=== PATIENT | female | born 1945 | race African-American/Black ===

== ENCOUNTER 2016-11-27 01:26 | Emergency (ER) | payer MEDICARE, OTHER ==
[~2016-11-27] VITALS: Ht 154.9 cm; Wt 90.9 kg
[~2016-11-27 01:26] MED LIST: AMLO-512 PO; ASPI81TA2 PO; DONE10TA43 PO; METF500T4 PO; METO-325 PO; OXYB5 PO; PARO20TA41 PO; PIOG15TA13 PO
[2016-11-27 01:52] LABS: GLUCOSE,POINT OF CARE 119 MG/DL (70-110)
[2016-11-27] MEDS ORDERED: ACETAMINOPHEN 500 MG TABLET PO ONE (06:00)
[2016-11-27 06:05] VITALS: BP 134/86
== END 2016-11-27 07:55 | disposition home or self-care (01) ==
LOC: EMS 01:27
DX: S40.012A Contusion of left shoulder, initial encounter (principal); E11.9 Type 2 diabetes mellitus without complications; I10 Essential (primary) hypertension; Z86.73 Personal history of transient ischemic attack (TIA), and cerebral infarction without residual deficits; W01.198A Fall on same level from slipping, tripping and stumbling with subsequent striking against other object, initial encounter; Y93.89 Activity, other specified; Y92.89 Other specified places as the place of occurrence of the external cause; Y99.9 Unspecified external cause status
CPT/HCPCS: 82962; 99284

== ENCOUNTER 2022-02-18 13:35 | Inpatient (IN) | payer OTHER, MEDICAID ==
[~2022-02-18] VITALS: Ht 170.2 cm; Wt 99.6 kg
[~2022-02-18 13:35] MED LIST changes: +AMLO-258 PO; -AMLO-512 PO; +ASPI-1198 PO; -ASPI81TA2 PO; +METF-1211 PO; -METF500T4 PO; -METO-325 PO; +METO-558 PO; -OXYB5 PO; +OXYB5TAB20 PO; +PARO-66 PO; -PARO20TA41 PO; -PIOG15TA13 PO; +PIOG15TA6 PO
[2022-02-18 14:15] LABS: APPEARANCE,URINE HAZY (CLEAR); BILIRUBIN,URINE NEGATIVE (NEGATIVE); GLUCOSE, URINE (UA) NEGATIVE (NEGATIVE); KETONES,URINE NEGATIVE (NEGATIVE); LEUKOCYTE ESTERASE ,URINE NEGATIVE (NEGATIVE); NITRATE,URINE NEGATIVE (NEGATIVE); OCCULT BLOOD,URINE NEGATIVE (NEGATIVE); PROTEIN,URINE TRACE mg/dL (NEGATIVE); SPECIFIC GRAVITIY, URINE 1.017 (1.003-1.030); UROBILINOGEN,URINE <=1.0 mg/dL (<=1.0)
[2022-02-18 14:24] LABS: CALCIUM, TOTAL 10.6 mg/dL (8.8-10.5); CREATININE 7.66 mg/dL (0.60-1.30); POTASSIUM 5.9 mmol/L (3.5-5.1)
[2022-02-18 14:25] LABS: HEMATOCRIT 39.6 % (36-46); MEAN CORPUSCULAR HEMOGLOBIN 26.6 pg (26.0-34.0); MEAN CORPUSCULAR HGB CONC 30.2 G/dL (31.0-37.0); MEAN CORPUSCULAR VOLUME 88 fL (80-100); PLATELET COUNT (AUTO) 369 K/uL (150-450); RED CELL DISTRIBUTION WIDTH 16.2 % (11.5-14.5)
[2022-02-18 14:31] LABS: INR 1.3 (0.9-1.1)
[2022-02-18 14:48] LABS: BAND NEUTROPHILS % (MANUAL) 17 % (0-5); LYMPHOCYTES % (MANUAL) 5 % (22-44); MONOCYTES % (MANUAL) 3 % (2-9); SEGMENTED NEUTROPHILS % 75 % (40-70)
[2022-02-18 14:49] LABS: ALBUMIN 2.6 g/dL (3.4-5.0); BILIRUBIN,TOTAL 0.8 mg/dL (0.1-1.0); TOTAL PROTEIN, SERUM 7.6 g/dL (6.4-8.2)
[2022-02-18] MEDS ORDERED: CefTRIAXone 1 GM/DEXTROSE 50 ML IV ONE (15:00)
[2022-02-18] MEDS ORDERED: SODIUM CHLORIDE 0.9% 2,000 ML IV ONE (15:00)
[2022-02-18 15:02] LABS: LACTIC ACID 8.7 mmol/L (0.4-2.0)
[2022-02-18 15:04] LABS: ABG BASE EXCESS -11.6 mmol/L (-2.0-3.0); ABG CARBOXYHEMOGLOBIN 0.3 % (0.0-1.5); ABG HCO3 16.4 mmol/L (22.0-26.0); ABG METHEMOGLOBIN 0.3 % (0.0-1.5); ABG OXYGEN CONTENT 16.5 mL/dL (15.0-23.0); ABG OXYGEN SATURATION 98.7 % (95.0-98.0); ABG OXYHEMOGLOBIN 98.1 % (94.0-100.0); ABG PCO2 30 mmHg (35-45); ABG PH 7.307 (7.35-7.450); ABG TOTAL HEMOGLOBIN 11.7 G/dL (12.0-18.0); PO2, ARTERIAL BG 193.1 mmHg (75.0-83.0); SOURCE, BLOOD GAS ARTERIAL; TEMPERATURE, FAHRENHEIT, BG 102.4 FAHREN (96.0-98.6)
[2022-02-18 15:05] LABS: ABG A-A DIFF O2 484.9 mmHg (10-20.0); SITE, BLOOD GAS ALINE
[2022-02-18 15:06] LABS: O2 DEVICE,BLOOD GAS VENTILATOR (ROOM AIR); PEEP,BG 5 cm H2O; VT, ABG 450 ml
[2022-02-18 15:09] LABS: COVID AG,FIA SOURCE NASAL SWAB
[2022-02-18] MEDS ORDERED: SODIUM BICARBONATE [ADULT] 8.4% 50 MEQ/50 ML SYRINGE IVP ONE (15:15)
[2022-02-18] MEDS ORDERED: CALCIUM GLUCONATE 100 MG/ML 10 ML IVP ONE (15:15)
[2022-02-18] MEDS ORDERED: ACETAMINOPHEN 1000 MG/ISO-OSM 100 ML IV ONE (15:15)
[2022-02-18] MEDS ORDERED: INSULIN REGULAR, HUMAN 100 UNITS/ML IVP ONE (15:15)
[2022-02-18] MEDS ORDERED: DEXTROSE 50%-WATER 25 GM/50 ML SYRINGE IVP ONE (15:15)
[2022-02-18] MEDS ORDERED: *CLINICAL-CEFEPIME DOSING CLINICAL ONE ×3 (15:15→19:15)
[2022-02-18] MEDS ORDERED: 0.9% SODIUM CHLORIDE 10 ML SYRINGE IVP PRN (15:30)
[2022-02-18] MEDS ORDERED: ONDANSETRON HCL 4 MG/2 ML VIAL IVP PRN (15:45)
[2022-02-18] MEDS ORDERED: HEPARIN SODIUM,PORCINE 5,000 UNITS/ML VIAL IVP ONE (15:45)
[2022-02-18] MEDS ORDERED: DEXTROSE 50%-WATER 25 GM/50 ML SYRINGE IVP PRN (15:45)
[2022-02-18] MEDS ORDERED: SODIUM CHLORIDE 0.45% 1,000 ML IV ONE (15:45)
[2022-02-18] MEDS ORDERED: BISACODYL 10 MG RECTAL RECTAL SUPPOSITORY PR PRN (15:45)
[2022-02-18] MEDS ORDERED: VANCOMYCIN 1GM/WATER(PEG/NADA) 200 ML IV ONE (16:00)
[2022-02-18] MEDS: NOREPINEPHRINE 8 MG/D5%-WATER 250 ML IV PRN (16:07)
[2022-02-18] MEDS: PROPOFOL 1000 MG/ISO-OSM 100 ML IV PRN (16:08)
[2022-02-18] MEDS ORDERED: VANCOMYCIN 1GM/WATER(PEG/NADA) 200 ML IV PRN (16:15)
[2022-02-18] MEDS: HEPARIN SODIUM,PORCINE 5,000 UNITS/ML VIAL SQ SCH ×2 (16:47→23:50)
[2022-02-18 17:06] LABS: COVID AG,FIA SOURCE NASAL SWAB
[2022-02-18 17:08] LABS: BACTERIA,URINE Rare /HPF (None Seen); RBC,URINE 0-2 /HPF (0-2); SQUAMOUS EPITHELIAL CELL,UR Many /LPF (None Seen); WBC,URINE 0-2 /HPF (0-5)
[2022-02-18] MEDS: CEFEPIME HCL 1 GM in DEXTROSE 5%-WATER 50 ML IV SCH (17:48)
[2022-02-18 20:02] LABS: CREATININE,URINE RANDOM 214.1 mg/dL (30.0-125.0); SODIUM,URINE RANDOM < 5 mmol/l (20-110); UREA NITROGEN,URINE RANDOM 823 mg/dL (350-1000)
[2022-02-18] MEDS ORDERED: ACETAMINOPHEN 325 MG/ISO-OSM 32.5 ML IV PRN (21:00)
[2022-02-18] MEDS: ACETAMINOPHEN 325 MG TABLET PO PRN (21:15)
[2022-02-18 22:45] VITALS: BP 116/79
[2022-02-18 23:00] VITALS: BP 134/91
[2022-02-18 23:30] VITALS: BP 115/59
[2022-02-19] VITALS (8 sets, daily range): BP systolic 79–136; BP diastolic 43–74
[2022-02-19] MEDS ORDERED: HEPARIN SODIUM,PORCINE 1,000 UNITS/ML VIAL IVCATH ONE ×2 (00:15)
[2022-02-19] MEDS: NOREPINEPHRINE 8 MG/D5%-WATER 250 ML IV PRN ×2 (02:25→10:09)
[2022-02-19] MEDS: PROPOFOL 1000 MG/ISO-OSM 100 ML IV PRN ×2 (02:30→22:25)
[2022-02-19] MEDS: VASOPRESSIN 40 UNITS in DEXTROSE 5%-WATER 98 ML IV PRN ×2 (05:04→22:22)
[2022-02-19 05:32] LABS: CREATININE 4.18 mg/dL (0.60-1.30); MAGNESIUM 1.5 mg/dL (1.80-2.40); PHOSPHORUS 1.6 mg/dL (2.5-4.9); POTASSIUM 3.6 mmol/L (3.5-5.1)
[2022-02-19 05:33] LABS: INR 1.6 (0.9-1.1); PROTHROMBIN TIME 16.3 SEC (9.4-11.6)
[2022-02-19 05:34] LABS: HEMATOCRIT 30.4 % (36-46); HEMOGLOBIN 9.9 g/dL (12.0-16.0); MEAN CORPUSCULAR HEMOGLOBIN 26.8 pg (26.0-34.0); MEAN CORPUSCULAR HGB CONC 32.5 G/dL (31.0-37.0); MEAN CORPUSCULAR VOLUME 82 fL (80-100); PLATELET COUNT (AUTO) 258 K/uL (150-450); RED BLOOD CELL COUNT(AUTO) 3.69 MIL/uL (4.00-5.20)
[2022-02-19 05:40] LABS: LACTIC ACID 4.5 mmol/L (0.4-2.0)
[2022-02-19 08:23] LABS: BAND NEUTROPHILS % (MANUAL) 16 % (0-5); EOSINOPHILS % (MANUAL) 1 % (1-6); LYMPHOCYTES % (MANUAL) 9 % (22-44); MONOCYTES % (MANUAL) 5 % (2-9); SEGMENTED NEUTROPHILS % 69 % (40-70)
[2022-02-19] MEDS: PANTOPRAZOLE SODIUM 40 MG/VIAL IVP SCH (09:01)
[2022-02-19] MEDS: HEPARIN SODIUM,PORCINE 5,000 UNITS/ML VIAL SQ SCH ×2 (09:01→17:06)
[2022-02-19 09:30] LABS: ABG A-A DIFF O2 314.9 mmHg (10-20.0); ABG BASE EXCESS -3.3 mmol/L (-2.0-3.0); ABG CARBOXYHEMOGLOBIN 0.3 % (0.0-1.5); ABG HCO3 22.6 mmol/L (22.0-26.0); ABG METHEMOGLOBIN 0.1 % (0.0-1.5); ABG OXYGEN CONTENT 14.6 mL/dL (15.0-23.0); ABG OXYGEN SATURATION 94.5 % (95.0-98.0); ABG OXYHEMOGLOBIN 94.1 % (94.0-100.0); ABG PCO2 28 mmHg (35-45); ABG PH 7.476 (7.35-7.450); O2 DEVICE,BLOOD GAS VENTILATOR (ROOM AIR); PO2, ARTERIAL BG 79.7 mmHg (75.0-83.0); SITE, BLOOD GAS RT RADIAL; SOURCE, BLOOD GAS ARTERIAL; TEMPERATURE, FAHRENHEIT, BG 101.3 FAHREN (96.0-98.6); VT, ABG 450 ml
[2022-02-19 09:31] LABS: PEEP,BG 5 cm H2O
[2022-02-19] MEDS ORDERED: SODIUM CHLORIDE 0.9% 100 ML ONE (10:27)
[2022-02-19] MEDS ORDERED: AMIODARONE HCL 50 MG/ML 3 ML VIAL ONE (10:27)
[2022-02-19] MEDS ORDERED: AMIODARONE HCL 150 MG in DEXTROSE 5%-WATER 97 ML IV ONE (10:30)
[2022-02-19] MEDS ORDERED: AMIODARONE HCL 360 MG in DEXTROSE 5%-WATER 242.8 ML IV ONE (10:40)
[2022-02-19] MEDS: PHENYLEPHRINE 200 MG/D5%-WATER 250 ML IV PRN ×2 (10:47→21:39)
[2022-02-19] MEDS ORDERED: VANCOMYCIN HCL 750 MG in DEXTROSE 5%-WATER 250 ML IV ONE (12:00)
[2022-02-19] MEDS ORDERED: PROPOFOL 1000 MG/ISO-OSM 100 ML ONE (12:38)
[2022-02-19] MEDS ORDERED: SODIUM CHLORIDE 0.9% 500 ML IV ONE (13:15)
[2022-02-19] MEDS ORDERED: SODIUM CHLORIDE 0.9% 250 ML IV ONE (14:39)
[2022-02-19] MEDS: SODIUM CHLORIDE 0.9% 1,000 ML IV SCH (14:42)
[2022-02-19] MEDS ORDERED: AMIODARONE HCL 540 MG in DEXTROSE 5%-WATER 239.2 ML IV ONE (16:30)
[2022-02-19] MEDS: DOXYCYCLINE HYCLATE 100 MG in DEXTROSE 5%-WATER 100 ML IV SCH (16:30)
[2022-02-19] MEDS: CEFEPIME HCL 1 GM in DEXTROSE 5%-WATER 50 ML IV SCH (17:00)
[2022-02-19] MEDS: MetroNIDAZOLE 500 MG/NACL 100 ML IV SCH ×2 (17:06→23:16)
[2022-02-19 19:01] LABS: GLUCOSE,POINT OF CARE 324 MG/DL (70-110)
[2022-02-19] MEDS: INSULIN LISPRO 100 UNITS/ML SQ PRN ×2 (19:03→21:21)
[2022-02-20] VITALS: BP 126/60
[2022-02-20] MEDS: HEPARIN SODIUM,PORCINE 5,000 UNITS/ML VIAL SQ SCH ×3 (00:48→17:37)
[2022-02-20 02:10] LABS: GLUCOSE,POINT OF CARE 273 MG/DL (70-110)
[2022-02-20] MEDS: DOXYCYCLINE HYCLATE 100 MG in DEXTROSE 5%-WATER 100 ML IV SCH ×2 (03:59→14:42)
[2022-02-20 04:00] VITALS: BP 119/55
[2022-02-20] MEDS: SODIUM CHLORIDE 0.9% 1,000 ML IV SCH ×3 (05:54→23:05)
[2022-02-20] MEDS: MetroNIDAZOLE 500 MG/NACL 100 ML IV SCH ×3 (06:38→23:00)
[2022-02-20] MEDS: INSULIN LISPRO 100 UNITS/ML SQ PRN ×2 (06:40→19:19)
[2022-02-20 07:01] LABS: GLUCOSE,POINT OF CARE 267 MG/DL (70-110)
[2022-02-20 08:00] VITALS: BP 138/66
[2022-02-20 08:32] LABS: HEMOGLOBIN 8.8 g/dL (12.0-16.0); MEAN CORPUSCULAR HEMOGLOBIN 30.7 pg (26.0-34.0); MEAN CORPUSCULAR HGB CONC 33.8 G/dL (31.0-37.0); MEAN CORPUSCULAR VOLUME 91 fL (80-100); PLATELET COUNT (AUTO) 532 K/uL (150-450); RED BLOOD CELL COUNT(AUTO) 2.87 MIL/uL (4.00-5.20); RED CELL DISTRIBUTION WIDTH 16.6 % (11.5-14.5)
[2022-02-20] MEDS: PHENYLEPHRINE 200 MG/D5%-WATER 250 ML IV PRN (08:38)
[2022-02-20] MEDS: PANTOPRAZOLE SODIUM 40 MG/VIAL IVP SCH (08:39)
[2022-02-20] MEDS: ASPIRIN 81 MG DR TABLET NG SCH (08:39)
[2022-02-20 09:42] LABS: BAND NEUTROPHILS % (MANUAL) 17 % (0-5); EOSINOPHILS % (MANUAL) 1 % (1-6); LYMPHOCYTES % (MANUAL) 5 % (22-44); MONOCYTES % (MANUAL) 4 % (2-9); SEGMENTED NEUTROPHILS % 73 % (40-70)
[2022-02-20] MEDS ORDERED: AMIODARONE HCL 750 MG in DEXTROSE 5%-WATER 485 ML IV SCH (10:30)
[2022-02-20 12:00] VITALS: BP 133/64
[2022-02-20 12:14] LABS: ANION GAP 16 mmol/L (8-16); CALCIUM, TOTAL 7.3 mg/dL (8.8-10.5); CARBON DIOXIDE 19 mmol/L (22-29); CHLORIDE 99 mmol/L (98-107); CHOL/HDL RATIO 2.6 (3.9-5.7); CHOLESTEROL < 50 mg/dL (131-200); CREATININE 3.62 mg/dL (0.60-1.30); GLOMERULAR FILTR. RATE CALC 15 mL/min (>60); GLUCOSE,RANDOM 190 mg/dL (70-110); HDL CHOLESTEROL 19 mg/dL (40-60); LDL CHOL (CALC.) 10 mg/dL (0-130); PHOSPHORUS 3.1 mg/dL (2.5-4.9); POTASSIUM 4.1 mmol/L (3.5-5.1); SODIUM SERUM 134 mmol/L (136-145); TRIGLYCERIDES 107 mg/dL (15-150); UREA NITROGEN, BLOOD 71 mg/dL (7-18)
[2022-02-20 13:20] LABS: ABG A-A DIFF O2 193.4 mmHg (10-20.0); ABG BASE EXCESS -7.8 mmol/L (-2.0-3.0); ABG CARBOXYHEMOGLOBIN 0.3 % (0.0-1.5); ABG HCO3 18.9 mmol/L (22.0-26.0); ABG METHEMOGLOBIN 0.3 % (0.0-1.5); ABG OXYGEN CONTENT 13.6 mL/dL (15.0-23.0); ABG OXYGEN SATURATION 98.4 % (95.0-98.0); ABG OXYHEMOGLOBIN 97.8 % (94.0-100.0); ABG PCO2 30 mmHg (35-45); ABG PH 7.382 (7.35-7.450); ABG TOTAL HEMOGLOBIN 9.7 G/dL (12.0-18.0); O2 DEVICE,BLOOD GAS VENTILATOR (ROOM AIR); PEEP,BG 5 cm H2O; PO2, ARTERIAL BG 128.6 mmHg (75.0-83.0); SITE, BLOOD GAS ARTERIAL LINE; SOURCE, BLOOD GAS ARTERIAL; VT, ABG 450 ml
[2022-02-20 14:28] LABS: HEMATOCRIT 27.6 % (36-46); HEMOGLOBIN 8.8 g/dL (12.0-16.0); MEAN CORPUSCULAR HEMOGLOBIN 26.3 pg (26.0-34.0); MEAN CORPUSCULAR HGB CONC 31.9 G/dL (31.0-37.0); MEAN CORPUSCULAR VOLUME 83 fL (80-100); PLATELET COUNT (AUTO) 190 K/uL (150-450); RED BLOOD CELL COUNT(AUTO) 3.34 MIL/uL (4.00-5.20); RED CELL DISTRIBUTION WIDTH 16.7 % (11.5-14.5)
[2022-02-20 14:37] LABS: CALCIUM, TOTAL 7.5 mg/dL (8.8-10.5); CREATININE 3.35 mg/dL (0.60-1.30); POTASSIUM 3.9 mmol/L (3.5-5.1)
[2022-02-20 14:48] LABS: BAND NEUTROPHILS % (MANUAL) 21 % (0-5); LYMPHOCYTES % (MANUAL) 4 % (22-44); MONOCYTES % (MANUAL) 6 % (2-9); SEGMENTED NEUTROPHILS % 69 % (40-70)
[2022-02-20 16:00] VITALS: BP 129/57
[2022-02-20] MEDS: PANTOPRAZOLE SODIUM 80 MG in SODIUM CHLORIDE 0.9% 100 ML IV SCH (16:05)
[2022-02-20] MEDS: CEFEPIME HCL 1 GM in DEXTROSE 5%-WATER 50 ML IV SCH (17:38)
[2022-02-20] MEDS: VASOPRESSIN 40 UNITS in DEXTROSE 5%-WATER 98 ML IV PRN (17:38)
[2022-02-20 19:26] LABS: GLUCOSE,POINT OF CARE 144 MG/DL (70-110)
[2022-02-20 20:00] VITALS: BP 111/71
[2022-02-20] MEDS: ACETAMINOPHEN 325 MG TABLET PO PRN (21:36)
[2022-02-20 22:55] LABS: OCCULT BLOOD,GASTRIC FLUID NEGATIVE (NEGATIVE)
[2022-02-21] VITALS: BP 115/52
[2022-02-21] MEDS: PANTOPRAZOLE SODIUM 80 MG in SODIUM CHLORIDE 0.9% 100 ML IV SCH ×2 (00:19→11:49)
[2022-02-21] MEDS: HEPARIN SODIUM,PORCINE 5,000 UNITS/ML VIAL SQ SCH ×4 (00:21→23:37)
[2022-02-21] MEDS: INSULIN LISPRO 100 UNITS/ML SQ PRN ×2 (01:05→06:23)
[2022-02-21 01:31] LABS: GLUCOSE,POINT OF CARE 186 MG/DL (70-110)
[2022-02-21] MEDS: DOXYCYCLINE HYCLATE 100 MG in DEXTROSE 5%-WATER 100 ML IV SCH ×2 (02:27→13:12)
[2022-02-21 04:00] VITALS: BP 113/70
[2022-02-21] MEDS: MetroNIDAZOLE 500 MG/NACL 100 ML IV SCH ×3 (06:20→23:08)
[2022-02-21 08:00] VITALS: BP 119/67
[2022-02-21 08:17] LABS: HEMATOCRIT 25.1 % (36-46); HEMOGLOBIN 8.2 g/dL (12.0-16.0); MEAN CORPUSCULAR HEMOGLOBIN 26.3 pg (26.0-34.0); MEAN CORPUSCULAR HGB CONC 32.5 G/dL (31.0-37.0); MEAN CORPUSCULAR VOLUME 81 fL (80-100); PLATELET COUNT (AUTO) 176 K/uL (150-450); RED BLOOD CELL COUNT(AUTO) 3.12 MIL/uL (4.00-5.20); RED CELL DISTRIBUTION WIDTH 16.8 % (11.5-14.5)
[2022-02-21] MEDS: ASPIRIN 81 MG DR TABLET NG SCH (08:20)
[2022-02-21 08:21] LABS: BAND NEUTROPHILS % (MANUAL) 22 % (0-5); LYMPHOCYTES % (MANUAL) 4 % (22-44); MONOCYTES % (MANUAL) 7 % (2-9); SEGMENTED NEUTROPHILS % 67 % (40-70)
[2022-02-21 08:38] LABS: ALBUMIN 1.4 g/dL (3.4-5.0); CREATININE 3.29 mg/dL (0.60-1.30); POTASSIUM 3.7 mmol/L (3.5-5.1); TOTAL PROTEIN, SERUM 4.5 g/dL (6.4-8.2); VANCOMYCIN,RANDOM 14.5 mcg/mL (25.0-50.0)
[2022-02-21 08:57] LABS: C-REACTIVE PROTEIN QUANT 27.52 mg/dL (0.00-0.30)
[2022-02-21 12:00] VITALS: BP 104/67
[2022-02-21] MEDS ORDERED: LIDOCAINE 2% 5 ML JELLY TP ONE (12:48)
[2022-02-21] MEDS ORDERED: VANCOMYCIN HCL 750 MG in DEXTROSE 5%-WATER 250 ML IV ONE (15:00)
[2022-02-21 15:36] LABS: HEMATOCRIT 24.1 % (36-46); HEMOGLOBIN 7.9 g/dL (12.0-16.0); MEAN CORPUSCULAR HEMOGLOBIN 26.3 pg (26.0-34.0); MEAN CORPUSCULAR HGB CONC 32.6 G/dL (31.0-37.0); MEAN CORPUSCULAR VOLUME 81 fL (80-100); PLATELET COUNT (AUTO) 173 K/uL (150-450); RED BLOOD CELL COUNT(AUTO) 2.99 MIL/uL (4.00-5.20); RED CELL DISTRIBUTION WIDTH 16.6 % (11.5-14.5)
[2022-02-21 15:58] LABS: BAND NEUTROPHILS % (MANUAL) 8 % (0-5); LYMPHOCYTES % (MANUAL) 5 % (22-44); MONOCYTES % (MANUAL) 10 % (2-9); SEGMENTED NEUTROPHILS % 77 % (40-70)
[2022-02-21 16:00] VITALS: BP 99/62
[2022-02-21 16:01] LABS: PLATELET MORPHOLOGY COMMENT LARGE PLTS PRESENT
[2022-02-21] MEDS: AMIODARONE HCL 200 MG TABLET NG SCH ×2 (16:13→21:12)
[2022-02-21] MEDS: CEFEPIME HCL 1 GM in DEXTROSE 5%-WATER 50 ML IV SCH (16:14)
[2022-02-21] MEDS ORDERED: SODIUM CHLORIDE 0.9% 250 ML IV ONE (17:15)
[2022-02-21 19:06] LABS: LEGIONELLA PNEUMO AG URINE Negative (Negative); S PNEUMO SOURCE Urine; STREP PNEUMONIAE AG URINE Negative (Negative)
[2022-02-21 19:21] LABS: GLUCOSE,POINT OF CARE 126 MG/DL (70-110)
[2022-02-21 19:21] LABS: GLUCOSE,POINT OF CARE 148 MG/DL (70-110)
[2022-02-21 19:21] LABS: GLUCOSE,POINT OF CARE 126 MG/DL (70-110)
[2022-02-21 20:00] VITALS: BP 142/83
[2022-02-21] MEDS: SODIUM CHLORIDE 0.9% 1,000 ML IV SCH (23:40)
[2022-02-22] VITALS: BP 125/65
[2022-02-22] MEDS ORDERED: AMIODARONE HCL 150 MG in DEXTROSE 5%-WATER 97 ML IV ONE (01:15)
[2022-02-22] MEDS ORDERED: AMIODARONE HCL 360 MG in DEXTROSE 5%-WATER 242.8 ML IV ONE (01:15)
[2022-02-22] MEDS: DOXYCYCLINE HYCLATE 100 MG in DEXTROSE 5%-WATER 100 ML IV SCH (02:07)
[2022-02-22 04:00] VITALS: BP 121/72
[2022-02-22] MEDS: INSULIN LISPRO 100 UNITS/ML SQ PRN (05:48)
[2022-02-22 05:56] LABS: GLUCOSE,POINT OF CARE 178 MG/DL (70-110)
[2022-02-22 06:09] LABS: HEMATOCRIT 25.8 % (36-46); HEMOGLOBIN 8.5 g/dL (12.0-16.0); MEAN CORPUSCULAR HEMOGLOBIN 26.2 pg (26.0-34.0); MEAN CORPUSCULAR HGB CONC 32.9 G/dL (31.0-37.0); MEAN CORPUSCULAR VOLUME 80 fL (80-100); PLATELET COUNT (AUTO) 212 K/uL (150-450); RED BLOOD CELL COUNT(AUTO) 3.24 MIL/uL (4.00-5.20); RED CELL DISTRIBUTION WIDTH 17.3 % (11.5-14.5)
[2022-02-22 06:26] LABS: GLUCOSE,POINT OF CARE 103 MG/DL (70-110)
[2022-02-22 06:28] LABS: ALBUMIN 1.5 g/dL (3.4-5.0); CALCIUM, TOTAL 7.5 mg/dL (8.8-10.5); CREATININE 2.98 mg/dL (0.60-1.30); POTASSIUM 3.4 mmol/L (3.5-5.1); TOTAL PROTEIN, SERUM 4.8 g/dL (6.4-8.2)
[2022-02-22] MEDS: MetroNIDAZOLE 500 MG/NACL 100 ML IV SCH (06:37)
[2022-02-22] MEDS ORDERED: AMIODARONE HCL 540 MG in DEXTROSE 5%-WATER 239.2 ML IV ONE (07:15)
[2022-02-22 08:00] VITALS: BP 104/59
[2022-02-22] MEDS: ACETAMINOPHEN 325 MG TABLET PO PRN (08:16)
[2022-02-22] MEDS: HEPARIN SODIUM,PORCINE 5,000 UNITS/ML VIAL SQ SCH ×2 (08:16→16:19)
[2022-02-22] MEDS: ASPIRIN 81 MG DR TABLET NG SCH (08:16)
[2022-02-22 08:18] LABS: MAGNESIUM 1.2 mg/dL (1.80-2.40); PHOSPHORUS 1.6 mg/dL (2.5-4.9)
[2022-02-22] MEDS ORDERED: MAGNESIUM SULFATE 3 GM in DEXTROSE 5%-WATER 100 ML IV ONE (08:30)
[2022-02-22] MEDS ORDERED: SODIUM PHOS,M-BASIC-D-BASIC 20 MEQ in DEXTROSE 5%-WATER 100 ML IV ONE (08:30)
[2022-02-22] MEDS ORDERED: DIGOXIN 250 MCG/ML 2 ML AMP IVP ONE (11:30)
[2022-02-22 12:00] VITALS: BP 121/84
[2022-02-22] MEDS ORDERED: FentaNYL CITRATE PF 100 MCG/2 ML VIAL IVP PRN (12:00)
[2022-02-22 15:16] LABS: HEMOGLOBIN 8.1 g/dL (12.0-16.0); MEAN CORPUSCULAR HEMOGLOBIN 26.2 pg (26.0-34.0); MEAN CORPUSCULAR HGB CONC 32.4 G/dL (31.0-37.0); MEAN CORPUSCULAR VOLUME 81 fL (80-100); PLATELET COUNT (AUTO) 185 K/uL (150-450); RED CELL DISTRIBUTION WIDTH 17.5 % (11.5-14.5)
[2022-02-22 15:32] LABS: CALCIUM, TOTAL 7.5 mg/dL (8.8-10.5); CREATININE 2.75 mg/dL (0.60-1.30); MAGNESIUM 2.1 mg/dL (1.80-2.40); PHOSPHORUS 2.2 mg/dL (2.5-4.9); POTASSIUM 3.1 mmol/L (3.5-5.1)
[2022-02-22] MEDS: NAFCILLIN SODIUM 2 GM in DEXTROSE 5%-WATER 100 ML IV SCH ×3 (15:50→22:08)
[2022-02-22] MEDS: MetroNIDAZOLE 500 MG TABLET PO SCH (15:58)
[2022-02-22 16:00] VITALS: BP 74/46
[2022-02-22 16:36] LABS: BAND NEUTROPHILS % (MANUAL) 10 % (0-5); EOSINOPHILS % (MANUAL) 2 % (1-6); LYMPHOCYTES % (MANUAL) 7 % (22-44); MONOCYTES % (MANUAL) 6 % (2-9); MYELOCYTES % 1 % (0-0); SEGMENTED NEUTROPHILS % 74 % (40-70)
[2022-02-22 16:40] LABS: PLATELET MORPHOLOGY COMMENT LARGE PLTS; WBC MORPHOLOGY TOXIC GRANULATION
[2022-02-22] MEDS: SODIUM CHLORIDE 0.9% 1,000 ML IV SCH (16:56)
[2022-02-22 18:21] LABS: GLUCOSE,POINT OF CARE 152 MG/DL (70-110)
[2022-02-22] MEDS ORDERED: POTASSIUM CHL 10 MEQ/WATER 50 ML IV ONE (18:45)
[2022-02-22] MEDS ORDERED: POTASSIUM PHOS,M-BASIC-D-BASIC 10 MEQ in DEXTROSE 5%-WATER 100 ML IV ONE (18:45)
[2022-02-22 20:00] VITALS: BP 108/59
[2022-02-22 21:30] LABS: GLUCOSE,POINT OF CARE 181 MG/DL (70-110)
[2022-02-22] MEDS ORDERED: SODIUM CHLORIDE 0.9% 250 ML IV ONE (21:56)
[2022-02-23] VITALS: BP 116/55
[2022-02-23] MEDS: HEPARIN SODIUM,PORCINE 5,000 UNITS/ML VIAL SQ SCH ×2 (00:20→07:48)
[2022-02-23] MEDS: MetroNIDAZOLE 500 MG TABLET PO SCH ×3 (00:21→16:00)
[2022-02-23] MEDS: AMIODARONE HCL 750 MG in DEXTROSE 5%-WATER 485 ML IV SCH ×2 (00:21→21:28)
[2022-02-23] MEDS: INSULIN LISPRO 100 UNITS/ML SQ PRN ×4 (00:51→20:09)
[2022-02-23] MEDS: NAFCILLIN SODIUM 2 GM in DEXTROSE 5%-WATER 100 ML IV SCH ×6 (01:14→21:29)
[2022-02-23 05:00] VITALS: BP 117/62
[2022-02-23 05:45] LABS: HEMATOCRIT 26.1 % (36-46); HEMOGLOBIN 8.6 g/dL (12.0-16.0); MEAN CORPUSCULAR HEMOGLOBIN 26.2 pg (26.0-34.0); MEAN CORPUSCULAR HGB CONC 33.1 G/dL (31.0-37.0); MEAN CORPUSCULAR VOLUME 79 fL (80-100); PLATELET COUNT (AUTO) 231 K/uL (150-450); RED BLOOD CELL COUNT(AUTO) 3.29 MIL/uL (4.00-5.20); RED CELL DISTRIBUTION WIDTH 17.4 % (11.5-14.5)
[2022-02-23 05:57] LABS: INR 1.3 (0.9-1.1); PROTHROMBIN TIME 14.1 SEC (9.4-11.6)
[2022-02-23 06:05] LABS: ALBUMIN 1.3 g/dL (3.4-5.0); BILIRUBIN,TOTAL 2.5 mg/dL (0.1-1.0); C-REACTIVE PROTEIN QUANT 15.08 mg/dL (0.00-0.30); CALCIUM, TOTAL 7.7 mg/dL (8.8-10.5); CREATININE 2.78 mg/dL (0.60-1.30); POTASSIUM 3.1 mmol/L (3.5-5.1); TOTAL PROTEIN, SERUM 4.5 g/dL (6.4-8.2)
[2022-02-23 06:15] LABS: BAND NEUTROPHILS % (MANUAL) 4 % (0-5); EOSINOPHILS % (MANUAL) 1 % (1-6); LYMPHOCYTES % (MANUAL) 10 % (22-44); MONOCYTES % (MANUAL) 7 % (2-9); SEGMENTED NEUTROPHILS % 78 % (40-70)
[2022-02-23] MEDS: ASPIRIN 81 MG DR TABLET NG SCH (07:51)
[2022-02-23 08:00] VITALS: BP 120/50
[2022-02-23 08:00] LABS: GLUCOSE,POINT OF CARE 183 MG/DL (70-110)
[2022-02-23 08:00] LABS: GLUCOSE,POINT OF CARE 173 MG/DL (70-110)
[2022-02-23 08:48] LABS: ABG A-A DIFF O2 120.4 mmHg (10-20.0); ABG BASE EXCESS -5.4 mmol/L (-2.0-3.0); ABG CARBOXYHEMOGLOBIN 0.2 % (0.0-1.5); ABG HCO3 20.7 mmol/L (22.0-26.0); ABG METHEMOGLOBIN 0.3 % (0.0-1.5); ABG OXYGEN SATURATION 97.1 % (95.0-98.0); ABG OXYHEMOGLOBIN 96.6 % (94.0-100.0); ABG PCO2 29 mmHg (35-45); ABG PH 7.429 (7.35-7.450); ABG TOTAL HEMOGLOBIN 9.5 G/dL (12.0-18.0); O2 DEVICE,BLOOD GAS VENTILATOR (ROOM AIR); PO2, ARTERIAL BG 94.7 mmHg (75.0-83.0); SITE, BLOOD GAS RT RADIAL; SOURCE, BLOOD GAS ARTERIAL; TEMPERATURE, FAHRENHEIT, BG 99.5 FAHREN (96.0-98.6); VT, ABG 450 ml
[2022-02-23 08:49] LABS: PEEP,BG 5 cm H2O
[2022-02-23] MEDS ORDERED: BENZOCAINE 20% 50 MCG/SPRAY 57 GM ONE (09:22)
[2022-02-23] MEDS: PROPOFOL 1000 MG/ISO-OSM 100 ML IV PRN (09:26)
[2022-02-23] MEDS ORDERED: BENZOCAINE 20% 50 MCG/SPRAY 57 GM TP ONE (09:30)
[2022-02-23] MEDS ORDERED: HEPARIN SODIUM,PORCINE 5,000 UNITS/ML VIAL IVP PRN ×4 (11:15→12:30)
[2022-02-23] MEDS ORDERED: HEPARIN SODIUM 25000 UNITS/D5W 250 ML IV PRN ×2 (11:15→12:30)
[2022-02-23] MEDS ORDERED: HEPARIN SODIUM,PORCINE 5,000 UNITS/ML VIAL IVP ONE ×2 (11:15→12:30)
[2022-02-23 11:46] LABS: HEMATOCRIT 25.2 % (36-46); HEMOGLOBIN 8.3 g/dL (12.0-16.0); MEAN CORPUSCULAR HEMOGLOBIN 26.1 pg (26.0-34.0); MEAN CORPUSCULAR HGB CONC 33.2 G/dL (31.0-37.0); MEAN CORPUSCULAR VOLUME 79 fL (80-100); PLATELET COUNT (AUTO) 224 K/uL (150-450); RED CELL DISTRIBUTION WIDTH 18.1 % (11.5-14.5)
[2022-02-23] MEDS: POTASSIUM CHL 10 MEQ/WATER 50 ML IV SCH ×3 (11:51→14:44)
[2022-02-23 11:52] LABS: INR 1.4 (0.9-1.1); PROTHROMBIN TIME 14.6 SEC (9.4-11.6)
[2022-02-23 12:00] VITALS: BP 110/64
[2022-02-23 14:12] LABS: CORRECTED WHITE BLOOD COUNT 26.1 K/uL (4.5-11.0)
[2022-02-23 14:51] LABS: BAND NEUTROPHILS % (MANUAL) 10 % (0-5); LYMPHOCYTES % (MANUAL) 6 % (22-44); MONOCYTES % (MANUAL) 6 % (2-9); SEGMENTED NEUTROPHILS % 78 % (40-70)
[2022-02-23 16:00] VITALS: BP 116/74
[2022-02-23 20:00] VITALS: BP 126/53
[2022-02-24] VITALS: BP 118/65
[2022-02-24] MEDS ORDERED: SODIUM CHLORIDE 0.9% 250 ML IV ONE ×3 (00:11→18:09)
[2022-02-24] MEDS: MetroNIDAZOLE 500 MG TABLET PO SCH ×4 (00:36→23:25)
[2022-02-24] MEDS: SODIUM CHLORIDE 0.9% 1,000 ML IV SCH ×2 (00:37→23:25)
[2022-02-24] MEDS: INSULIN LISPRO 100 UNITS/ML SQ PRN ×4 (00:52→23:38)
[2022-02-24 01:06] LABS: GLUCOSE,POINT OF CARE 150 MG/DL (70-110)
[2022-02-24] MEDS: NAFCILLIN SODIUM 2 GM in DEXTROSE 5%-WATER 100 ML IV SCH ×6 (02:26→22:22)
[2022-02-24 04:00] VITALS: BP 105/61
[2022-02-24 06:00] LABS: HEMATOCRIT 26.1 % (36-46); HEMOGLOBIN 8.7 g/dL (12.0-16.0); MEAN CORPUSCULAR HEMOGLOBIN 26.1 pg (26.0-34.0); MEAN CORPUSCULAR HGB CONC 33.5 G/dL (31.0-37.0); MEAN CORPUSCULAR VOLUME 78 fL (80-100); PLATELET COUNT (AUTO) 236 K/uL (150-450); RED BLOOD CELL COUNT(AUTO) 3.35 MIL/uL (4.00-5.20); RED CELL DISTRIBUTION WIDTH 18.1 % (11.5-14.5)
[2022-02-24 06:08] LABS: ALBUMIN 1.2 g/dL (3.4-5.0); BILIRUBIN,TOTAL 2.4 mg/dL (0.1-1.0); C-REACTIVE PROTEIN QUANT 9.6 mg/dL (0.00-0.30); CALCIUM, TOTAL 7.3 mg/dL (8.8-10.5); CREATININE 2.94 mg/dL (0.60-1.30); POTASSIUM 3.1 mmol/L (3.5-5.1); TOTAL PROTEIN, SERUM 4.6 g/dL (6.4-8.2)
[2022-02-24 06:15] LABS: BAND NEUTROPHILS % (MANUAL) 16 % (0-5); LYMPHOCYTES % (MANUAL) 5 % (22-44); MONOCYTES % (MANUAL) 7 % (2-9); SEGMENTED NEUTROPHILS % 72 % (40-70)
[2022-02-24 06:51] LABS: GLUCOSE,POINT OF CARE 165 MG/DL (70-110)
[2022-02-24 06:56] LABS: GLUCOSE,POINT OF CARE 160 MG/DL (70-110)
[2022-02-24 06:56] LABS: GLUCOSE,POINT OF CARE 159 MG/DL (70-110)
[2022-02-24 08:00] VITALS: BP 108/61
[2022-02-24] MEDS: ASPIRIN 81 MG DR TABLET NG SCH (08:43)
[2022-02-24] MEDS: POTASSIUM CHL 10 MEQ/WATER 50 ML IV SCH ×6 (11:18→20:24)
[2022-02-24] MEDS ORDERED: *CLINICAL-LEVOFLOXACIN IVPB DOSING CLINICAL ONE (11:45)
[2022-02-24 12:00] VITALS: BP 86/53
[2022-02-24] MEDS ORDERED: LEVOFLOXACIN 750 MG/D5% WATER 150 ML IV ONE (12:00)
[2022-02-24] MEDS ORDERED: MEBROFENIN TC99M/MCL ISOTOPE 1 EA INJ INJ ONE (14:10)
[2022-02-24 16:00] VITALS: BP 96/53
[2022-02-24 16:01] LABS: GLUCOSE,POINT OF CARE 194 MG/DL (70-110)
[2022-02-24] MEDS ORDERED: HEPARIN SODIUM,PORCINE 5,000 UNITS/ML VIAL IVP ONE (18:15)
[2022-02-24] MEDS ORDERED: HEPARIN SODIUM,PORCINE 5,000 UNITS/ML VIAL IVP PRN ×2 (18:15)
[2022-02-24] MEDS: HEPARIN SODIUM 25000 UNITS/D5W 250 ML IV PRN (18:45)
[2022-02-24 20:00] VITALS: BP 113/55
[2022-02-24] MEDS: AMIODARONE HCL 750 MG in DEXTROSE 5%-WATER 485 ML IV SCH (22:22)
[2022-02-25] VITALS: BP 117/78
[2022-02-25] MEDS: NAFCILLIN SODIUM 2 GM in DEXTROSE 5%-WATER 100 ML IV SCH ×6 (02:16→21:33)
[2022-02-25 04:00] VITALS: BP 106/61
[2022-02-25 05:32] LABS: HEMATOCRIT 24.7 % (36-46); HEMOGLOBIN 8.2 g/dL (12.0-16.0); MEAN CORPUSCULAR HEMOGLOBIN 25.7 pg (26.0-34.0); MEAN CORPUSCULAR HGB CONC 33.4 G/dL (31.0-37.0); MEAN CORPUSCULAR VOLUME 77 fL (80-100); PLATELET COUNT (AUTO) 196 K/uL (150-450); RED BLOOD CELL COUNT(AUTO) 3.21 MIL/uL (4.00-5.20); RED CELL DISTRIBUTION WIDTH 19.1 % (11.5-14.5)
[2022-02-25 05:46] LABS: ALBUMIN 1.3 g/dL (3.4-5.0); BILIRUBIN,TOTAL 1.8 mg/dL (0.1-1.0); CALCIUM, TOTAL 7.1 mg/dL (8.8-10.5); CREATININE 2.95 mg/dL (0.60-1.30); TOTAL PROTEIN, SERUM 4.6 g/dL (6.4-8.2)
[2022-02-25 05:56] LABS: GLUCOSE,POINT OF CARE 172 MG/DL (70-110)
[2022-02-25 06:05] LABS: BAND NEUTROPHILS % (MANUAL) 10 % (0-5); LYMPHOCYTES % (MANUAL) 10 % (22-44); MONOCYTES % (MANUAL) 6 % (2-9); SEGMENTED NEUTROPHILS % 74 % (40-70)
[2022-02-25] MEDS: POTASSIUM CHL 10 MEQ/WATER 50 ML IV SCH ×2 (06:14→06:53)
[2022-02-25 06:27] LABS: C-REACTIVE PROTEIN QUANT 7.02 mg/dL (0.00-0.30)
[2022-02-25 07:00] LABS: GLUCOSE,POINT OF CARE 133 MG/DL (70-110)
[2022-02-25 08:00] VITALS: BP 97/51
[2022-02-25] MEDS: MetroNIDAZOLE 500 MG TABLET PO SCH ×2 (08:36→17:40)
[2022-02-25] MEDS: ASPIRIN 81 MG DR TABLET NG SCH (08:36)
[2022-02-25] MEDS ORDERED: POTASSIUM CHL 10 MEQ/WATER 50 ML IV ONE (10:45)
[2022-02-25] MEDS: HEPARIN SODIUM 25000 UNITS/D5W 250 ML IV PRN (11:35)
[2022-02-25 12:00] VITALS: BP 100/55
[2022-02-25] MEDS: INSULIN LISPRO 100 UNITS/ML SQ PRN ×2 (14:06→19:20)
[2022-02-25 16:00] VITALS: BP 60/29
[2022-02-25] MEDS: NOREPINEPHRINE 8 MG/D5%-WATER 250 ML IV PRN (16:28)
[2022-02-25 19:02] LABS: GLUCOSE,POINT OF CARE 179 MG/DL (70-110)
[2022-02-25 19:51] LABS: GLUCOSE,POINT OF CARE 177 MG/DL (70-110)
[2022-02-25 20:00] VITALS: BP 106/58
[2022-02-25] MEDS: AMIODARONE HCL 750 MG in DEXTROSE 5%-WATER 485 ML IV SCH (21:32)
[2022-02-26] VITALS: BP 120/46
[2022-02-26] MEDS: MetroNIDAZOLE 500 MG TABLET PO SCH ×4 (00:14→23:02)
[2022-02-26] MEDS: INSULIN LISPRO 100 UNITS/ML SQ PRN ×4 (00:16→23:03)
[2022-02-26] MEDS: NAFCILLIN SODIUM 2 GM in DEXTROSE 5%-WATER 100 ML IV SCH ×6 (02:12→22:08)
[2022-02-26 04:00] VITALS: BP 124/72
[2022-02-26 06:39] LABS: HEMATOCRIT 22.8 % (36-46); HEMOGLOBIN 7.7 g/dL (12.0-16.0); MEAN CORPUSCULAR HEMOGLOBIN 25.9 pg (26.0-34.0); MEAN CORPUSCULAR HGB CONC 33.7 G/dL (31.0-37.0); MEAN CORPUSCULAR VOLUME 77 fL (80-100); PLATELET COUNT (AUTO) 228 K/uL (150-450); RED BLOOD CELL COUNT(AUTO) 2.96 MIL/uL (4.00-5.20); RED CELL DISTRIBUTION WIDTH 19.1 % (11.5-14.5)
[2022-02-26 06:50] LABS: ALBUMIN 1.3 g/dL (3.4-5.0); BILIRUBIN,TOTAL 1.7 mg/dL (0.1-1.0); TOTAL PROTEIN, SERUM 4.7 g/dL (6.4-8.2)
[2022-02-26 06:59] LABS: BAND NEUTROPHILS % (MANUAL) 9 % (0-5); LYMPHOCYTES % (MANUAL) 8 % (22-44); MONOCYTES % (MANUAL) 7 % (2-9); SEGMENTED NEUTROPHILS % 76 % (40-70)
[2022-02-26 07:17] LABS: POTASSIUM 2.5 mmol/L (3.5-5.1)
[2022-02-26] MEDS: POTASSIUM CHL 10 MEQ/WATER 50 ML IV SCH ×10 (07:46→19:14)
[2022-02-26 08:00] VITALS: BP 115/72
[2022-02-26] MEDS: ASPIRIN 81 MG DR TABLET NG SCH (08:11)
[2022-02-26 09:51] LABS: GLUCOSE,POINT OF CARE 163 MG/DL (70-110)
[2022-02-26 09:51] LABS: GLUCOSE,POINT OF CARE 76 MG/DL (70-110)
[2022-02-26 11:37] LABS: GLUCOSE,POINT OF CARE 158 MG/DL (70-110)
[2022-02-26 12:00] VITALS: BP 100/64
[2022-02-26] MEDS ORDERED: LEVOFLOXACIN 500 MG/D5% WATER 100 ML IV SCH (12:00)
[2022-02-26 12:18] LABS: ABG BASE EXCESS -8.6 mmol/L (-2.0-3.0); ABG CARBOXYHEMOGLOBIN 0.1 % (0.0-1.5); ABG HCO3 18.3 mmol/L (22.0-26.0); ABG METHEMOGLOBIN 0.3 % (0.0-1.5); ABG OXYGEN CONTENT 11.4 mL/dL (15.0-23.0); ABG OXYGEN SATURATION 98.6 % (95.0-98.0); ABG OXYHEMOGLOBIN 98.2 % (94.0-100.0); ABG PCO2 25 mmHg (35-45); ABG TOTAL HEMOGLOBIN 8.1 G/dL (12.0-18.0); SOURCE, BLOOD GAS ARTERIAL; TEMPERATURE, FAHRENHEIT, BG 98.6 FAHREN (96.0-98.6)
[2022-02-26 12:19] LABS: ABG A-A DIFF O2 103.4 mmHg (10-20.0); CPAP, BG 0 cm H2O; O2 DEVICE,BLOOD GAS VENTILATOR (ROOM AIR); PRESSURE SUPPORT, BG 8 cm H2O; SITE, BLOOD GAS RT RADIAL; SPONTANEOUS VT, BG 500 ml; VENT MODE, BG CPAP (ROOM AIR)
[2022-02-26 15:43] LABS: C.DIFF GDH ANTIGEN, Stool Negative (Negative); C.DIFF TOXINS A&B, Stool Negative (Negative)
[2022-02-26 16:00] VITALS: BP 98/59
[2022-02-26] MEDS ORDERED: SODIUM CHLORIDE 0.9% 250 ML IV ONE (19:35)
[2022-02-26 20:00] VITALS: BP 92/50
[2022-02-26 20:51] LABS: GLUCOSE,POINT OF CARE 196 MG/DL (70-110)
[2022-02-26] MEDS: HEPARIN SODIUM 25000 UNITS/D5W 250 ML IV PRN (22:07)
[2022-02-26] MEDS: SODIUM CHLORIDE 0.9% 1,000 ML IV SCH ×2 (22:08)
[2022-02-26] MEDS: AMIODARONE HCL 750 MG in DEXTROSE 5%-WATER 485 ML IV SCH (22:08)
[2022-02-26] MEDS: NOREPINEPHRINE 8 MG/D5%-WATER 250 ML IV PRN (22:33)
[2022-02-27] VITALS (12 sets, daily range): BP systolic 98–124; BP diastolic 52–72
[2022-02-27 01:11] LABS: GLUCOSE,POINT OF CARE 185 MG/DL (70-110)
[2022-02-27] MEDS: NAFCILLIN SODIUM 2 GM in DEXTROSE 5%-WATER 100 ML IV SCH ×6 (04:13→21:40)
[2022-02-27 05:34] LABS: MEAN CORPUSCULAR HEMOGLOBIN 25.5 pg (26.0-34.0); MEAN CORPUSCULAR HGB CONC 33.5 G/dL (31.0-37.0); MEAN CORPUSCULAR VOLUME 76 fL (80-100); PLATELET COUNT (AUTO) 248 K/uL (150-450); RED BLOOD CELL COUNT(AUTO) 2.69 MIL/uL (4.00-5.20); RED CELL DISTRIBUTION WIDTH 20.3 % (11.5-14.5)
[2022-02-27 05:36] LABS: HEMOGLOBIN 6.8 g/dL (12.0-16.0)
[2022-02-27 05:37] LABS: HEMATOCRIT 20.5 % (36-46)
[2022-02-27 05:43] LABS: ALBUMIN 1.3 g/dL (3.4-5.0); BILIRUBIN,TOTAL 1.4 mg/dL (0.1-1.0); C-REACTIVE PROTEIN QUANT 5.08 mg/dL (0.00-0.30); CALCIUM, TOTAL 6.9 mg/dL (8.8-10.5); CREATININE 2.99 mg/dL (0.60-1.30); TOTAL PROTEIN, SERUM 4.5 g/dL (6.4-8.2)
[2022-02-27 05:46] LABS: POTASSIUM 2.8 mmol/L (3.5-5.1)
[2022-02-27 06:00] LABS: BAND NEUTROPHILS % (MANUAL) 14 % (0-5); LYMPHOCYTES % (MANUAL) 6 % (22-44); MONOCYTES % (MANUAL) 3 % (2-9); SEGMENTED NEUTROPHILS % 77 % (40-70)
[2022-02-27] MEDS: POTASSIUM CHL 10 MEQ/WATER 50 ML IV SCH ×8 (06:15→18:03)
[2022-02-27 08:26] LABS: GLUCOSE,POINT OF CARE 124 MG/DL (70-110)
[2022-02-27] MEDS: PANTOPRAZOLE SODIUM 40 MG/VIAL IVP SCH ×2 (08:29→21:34)
[2022-02-27] MEDS: MetroNIDAZOLE 500 MG TABLET PO SCH ×3 (08:29→23:57)
[2022-02-27] MEDS: ASPIRIN 81 MG DR TABLET NG SCH (08:30)
[2022-02-27] MEDS ORDERED: MORPHINE SULFATE 2 MG/ML SYRINGE IVP PRN (10:00)
[2022-02-27] MEDS ORDERED: SODIUM CHLORIDE 0.9% 250 ML IV ONE ×2 (10:58→21:28)
[2022-02-27] MEDS: INSULIN LISPRO 100 UNITS/ML SQ PRN ×3 (11:41→23:57)
[2022-02-27 11:51] LABS: GLUCOSE,POINT OF CARE 259 MG/DL (70-110)
[2022-02-27 16:01] LABS: HEMATOCRIT 24.7 % (36-46)
[2022-02-27 16:04] LABS: HEMOGLOBIN 8.3 g/dL (12.0-16.0)
[2022-02-27] MEDS: AMIODARONE HCL 750 MG in DEXTROSE 5%-WATER 485 ML IV SCH (21:40)
[2022-02-27] MEDS: SODIUM CHLORIDE 0.9% 1,000 ML IV SCH (23:57)
[2022-02-28] VITALS: BP 103/56
[2022-02-28 00:01] LABS: GLUCOSE,POINT OF CARE 243 MG/DL (70-110)
[2022-02-28] MEDS: NAFCILLIN SODIUM 2 GM in DEXTROSE 5%-WATER 100 ML IV SCH ×6 (01:34→22:26)
[2022-02-28 04:00] VITALS: BP 90/56
[2022-02-28] MEDS: INSULIN LISPRO 100 UNITS/ML SQ PRN (05:46)
[2022-02-28 06:00] LABS: ALBUMIN 1.4 g/dL (3.4-5.0); BILIRUBIN,TOTAL 1.8 mg/dL (0.1-1.0); C-REACTIVE PROTEIN QUANT 5.67 mg/dL (0.00-0.30); CALCIUM, TOTAL 6.6 mg/dL (8.8-10.5); CREATININE 3.25 mg/dL (0.60-1.30); POTASSIUM 3.2 mmol/L (3.5-5.1); TOTAL PROTEIN, SERUM 4.9 g/dL (6.4-8.2)
[2022-02-28 07:12] LABS: HEMATOCRIT 25.7 % (36-46); HEMOGLOBIN 8.4 g/dL (12.0-16.0); MEAN CORPUSCULAR HEMOGLOBIN 25.9 pg (26.0-34.0); MEAN CORPUSCULAR HGB CONC 32.9 G/dL (31.0-37.0); MEAN CORPUSCULAR VOLUME 79 fL (80-100); PLATELET COUNT (AUTO) 223 K/uL (150-450); RED BLOOD CELL COUNT(AUTO) 3.26 MIL/uL (4.00-5.20); RED CELL DISTRIBUTION WIDTH 19.2 % (11.5-14.5)
[2022-02-28] MEDS ORDERED: SODIUM CHLORIDE 0.9% 500 ML IV ONE ×2 (07:37→07:45)
[2022-02-28 07:51] LABS: BAND NEUTROPHILS % (MANUAL) 5 % (0-5); LYMPHOCYTES % (MANUAL) 5 % (22-44); MONOCYTES % (MANUAL) 1 % (2-9); SEGMENTED NEUTROPHILS % 89 % (40-70)
[2022-02-28] MEDS: POTASSIUM CHL 10 MEQ/WATER 50 ML IV SCH ×8 (07:52→23:03)
[2022-02-28 08:00] VITALS: BP 93/54
[2022-02-28 08:21] LABS: GLUCOSE,POINT OF CARE 281 MG/DL (70-110)
[2022-02-28] MEDS: ASPIRIN 81 MG DR TABLET NG SCH (08:25)
[2022-02-28] MEDS: MetroNIDAZOLE 500 MG TABLET PO SCH ×2 (08:25→16:28)
[2022-02-28] MEDS: PANTOPRAZOLE SODIUM 40 MG/VIAL IVP SCH ×2 (08:25→21:19)
[2022-02-28 08:26] LABS: GLUCOSE,POINT OF CARE 249 MG/DL (70-110)
[2022-02-28] MEDS: EPOETIN ALFA 10,000 UNITS/ML VIAL SQ SCH (10:04)
[2022-02-28] MEDS: CITRIC ACID/SODIUM CITRATE 30 ML SOLUTION UDCUP PO SCH ×2 (10:18→21:19)
[2022-02-28] MEDS: ALBUMIN HUMAN 25%-25GM/100ML 100 ML IV SCH ×2 (10:19→16:28)
[2022-02-28 10:33] LABS: MAGNESIUM 1.4 mg/dL (1.80-2.40); PHOSPHORUS 5.2 mg/dL (2.5-4.9)
[2022-02-28 12:00] VITALS: BP 97/42
[2022-02-28] MEDS ORDERED: MAGNESIUM SULFATE 4 GM/WATER 100 ML IV ONE (12:00)
[2022-02-28 13:06] LABS: GLUCOSE,POINT OF CARE 202 MG/DL (70-110)
[2022-02-28 16:00] VITALS: BP 104/49
[2022-02-28 18:02] LABS: GLUCOSE,POINT OF CARE 217 MG/DL (70-110)
[2022-02-28 18:20] LABS: CREATININE 2.8 mg/dL (0.60-1.30); MAGNESIUM 2.1 mg/dL (1.80-2.40)
[2022-02-28 18:23] LABS: CALCIUM, TOTAL 5.8 mg/dL (8.8-10.5); POTASSIUM 2.5 mmol/L (3.5-5.1)
[2022-02-28 20:00] VITALS: BP 112/45
[2022-02-28] MEDS: AMIODARONE HCL 200 MG TABLET NG SCH (21:19)
[2022-03-01] VITALS (14 sets, daily range): BP systolic 97–179; BP diastolic 45–85
[2022-03-01] MEDS: SODIUM CHLORIDE 0.9% 1,000 ML IV SCH ×3 (00:23→23:13)
[2022-03-01] MEDS: POTASSIUM CHL 10 MEQ/WATER 50 ML IV SCH ×10 (00:25→17:29)
[2022-03-01] MEDS: MetroNIDAZOLE 500 MG TABLET PO SCH ×4 (00:25→23:34)
[2022-03-01] MEDS: INSULIN LISPRO 100 UNITS/ML SQ PRN ×4 (00:51→17:29)
[2022-03-01] MEDS: ALBUMIN HUMAN 25%-25GM/100ML 100 ML IV SCH ×4 (01:45→17:45)
[2022-03-01] MEDS: NAFCILLIN SODIUM 2 GM in DEXTROSE 5%-WATER 100 ML IV SCH ×6 (02:49→21:36)
[2022-03-01 05:17] LABS: BASOPHILS % (AUTO) 0.2 % (0.0-2.0); EOSINOPHILS % (AUTO) 0 % (1.0-6.0); LYMPHOCYTES # (AUTO) 0.7 K/uL (1.0-4.8); LYMPHOCYTES % (AUTO) 3.5 % (22.0-44.0); MEAN CORPUSCULAR HEMOGLOBIN 26.1 pg (26.0-34.0); MEAN CORPUSCULAR HGB CONC 33.7 G/dL (31.0-37.0); MEAN CORPUSCULAR VOLUME 77 fL (80-100); MONOCYTES # (AUTO) 1.2 K/uL (0.1-1.0); MONOCYTES % (AUTO) 5.8 % (2.0-9.0); NEUTROPHILS # (AUTO) 19.4 K/uL (1.8-7.7); PLATELET COUNT (AUTO) 218 K/uL (150-450); RED BLOOD CELL COUNT(AUTO) 2.38 MIL/uL (4.00-5.20); RED CELL DISTRIBUTION WIDTH 19.4 % (11.5-14.5)
[2022-03-01 05:31] LABS: ALBUMIN 2.6 g/dL (3.4-5.0); BILIRUBIN,TOTAL 2.5 mg/dL (0.1-1.0); CALCIUM, TOTAL 6.5 mg/dL (8.8-10.5); CREATININE 3.33 mg/dL (0.60-1.30); MAGNESIUM 2.1 mg/dL (1.80-2.40); PHOSPHORUS 5.4 mg/dL (2.5-4.9); POTASSIUM 3.1 mmol/L (3.5-5.1)
[2022-03-01 05:51] LABS: HEMATOCRIT 18.4 % (36-46); NEUTROPHILS % (AUTO) 90.5 % (40.0-70.0)
[2022-03-01 05:53] LABS: HEMOGLOBIN 6.2 g/dL (12.0-16.0)
[2022-03-01 07:13] LABS: C-REACTIVE PROTEIN QUANT 3.65 mg/dL (0.00-0.30)
[2022-03-01] MEDS ORDERED: LIDOCAINE/PF 1% 30 ML VIAL ONE (07:52)
[2022-03-01] MEDS ORDERED: SODIUM BICARBONATE 50 MEQ/50 ML VIAL ONE (07:52)
[2022-03-01] MEDS ORDERED: HEPARIN SODIUM 1000 UNITS/NS 1,000 ML ONE (07:52)
[2022-03-01] MEDS ORDERED: IOHEXOL 300 MG/ML 100 ML VIAL ONE (07:53)
[2022-03-01] MEDS ORDERED: SODIUM CHLORIDE 0.9% 500 ML IV ONE ×2 (08:15→09:00)
[2022-03-01] MEDS ORDERED: IOHEXOL 300 MG/ML 100 ML VIAL IVP ONE (08:15)
[2022-03-01] MEDS ORDERED: LIDOCAINE 1% 30 ML/SOD BICARB 8.4% 4 ML SQ ONE (08:15)
[2022-03-01] MEDS ORDERED: IOHEXOL 300 MG/ML 50 ML VIAL IVP ONE (08:15)
[2022-03-01] MEDS ORDERED: SODIUM CHLORIDE 0.9% 250 ML IV ONE (08:40)
[2022-03-01] MEDS: ASPIRIN 81 MG DR TABLET NG SCH (09:21)
[2022-03-01] MEDS: AMIODARONE HCL 200 MG TABLET NG SCH ×3 (09:21→20:34)
[2022-03-01] MEDS: CITRIC ACID/SODIUM CITRATE 30 ML SOLUTION UDCUP PO SCH ×2 (09:21→20:34)
[2022-03-01] MEDS: PANTOPRAZOLE SODIUM 40 MG/VIAL IVP SCH ×2 (09:21→20:34)
[2022-03-01 12:01] LABS: GLUCOSE,POINT OF CARE 226 MG/DL (70-110)
[2022-03-01 12:01] LABS: GLUCOSE,POINT OF CARE 252 MG/DL (70-110)
[2022-03-01 14:10] LABS: BASOPHILS % (AUTO) 0.2 % (0.0-2.0); EOSINOPHILS % (AUTO) 0 % (1.0-6.0); HEMATOCRIT 21.9 % (36-46); HEMOGLOBIN 7.5 g/dL (12.0-16.0); LYMPHOCYTES # (AUTO) 0.7 K/uL (1.0-4.8); LYMPHOCYTES % (AUTO) 3.8 % (22.0-44.0); MEAN CORPUSCULAR HEMOGLOBIN 27.3 pg (26.0-34.0); MEAN CORPUSCULAR VOLUME 80 fL (80-100); MONOCYTES # (AUTO) 0.9 K/uL (0.1-1.0); MONOCYTES % (AUTO) 4.9 % (2.0-9.0); NEUTROPHILS # (AUTO) 16.7 K/uL (1.8-7.7); PLATELET COUNT (AUTO) 144 K/uL (150-450); RED BLOOD CELL COUNT(AUTO) 2.73 MIL/uL (4.00-5.20); RED CELL DISTRIBUTION WIDTH 18.6 % (11.5-14.5)
[2022-03-01 14:12] LABS: NEUTROPHILS % (AUTO) 91.1 % (40.0-70.0)
[2022-03-01 14:30] LABS: CALCIUM, TOTAL 6.2 mg/dL (8.8-10.5); CREATININE 3.37 mg/dL (0.60-1.30); POTASSIUM 3.4 mmol/L (3.5-5.1)
[2022-03-01 15:17] LABS: OCCULT BLOOD,GASTRIC FLUID POSITIVE (NEGATIVE)
[2022-03-01] MEDS ORDERED: LEVOFLOXACIN 750 MG/D5% WATER 150 ML IV ONE (16:00)
[2022-03-01 17:37] LABS: GLUCOSE,POINT OF CARE 146 MG/DL (70-110)
[2022-03-01 17:56] LABS: GLUCOSE,POINT OF CARE 212 MG/DL (70-110)
[2022-03-02] VITALS (15 sets, daily range): BP systolic 110–149; BP diastolic 46–72
[2022-03-02] MEDS ORDERED: SODIUM CHLORIDE 0.9% 250 ML IV ONE ×2 (01:24→08:11)
[2022-03-02] MEDS: ALBUMIN HUMAN 25%-25GM/100ML 100 ML IV SCH ×3 (01:30→17:00)
[2022-03-02] MEDS: NAFCILLIN SODIUM 2 GM in DEXTROSE 5%-WATER 100 ML IV SCH ×6 (04:20→21:21)
[2022-03-02] MEDS: INSULIN LISPRO 100 UNITS/ML SQ PRN ×3 (06:20→17:45)
[2022-03-02 06:51] LABS: BASOPHILS % (AUTO) 0.1 % (0.0-2.0); EOSINOPHILS % (AUTO) 0.1 % (1.0-6.0); LYMPHOCYTES # (AUTO) 0.5 K/uL (1.0-4.8); LYMPHOCYTES % (AUTO) 3.6 % (22.0-44.0); MEAN CORPUSCULAR HEMOGLOBIN 27.5 pg (26.0-34.0); MEAN CORPUSCULAR HGB CONC 33.2 G/dL (31.0-37.0); MEAN CORPUSCULAR VOLUME 83 fL (80-100); MONOCYTES # (AUTO) 0.9 K/uL (0.1-1.0); MONOCYTES % (AUTO) 6.1 % (2.0-9.0); NEUTROPHILS # (AUTO) 12.7 K/uL (1.8-7.7); PLATELET COUNT (AUTO) 184 K/uL (150-450); RED BLOOD CELL COUNT(AUTO) 2.47 MIL/uL (4.00-5.20); RED CELL DISTRIBUTION WIDTH 18.1 % (11.5-14.5)
[2022-03-02 06:56] LABS: HEMOGLOBIN 6.8 g/dL (12.0-16.0)
[2022-03-02 06:57] LABS: HEMATOCRIT 20.5 % (36-46); NEUTROPHILS % (AUTO) 90.1 % (40.0-70.0)
[2022-03-02 07:01] LABS: ALBUMIN 2.3 g/dL (3.4-5.0); BILIRUBIN,TOTAL 2.1 mg/dL (0.1-1.0); CALCIUM, TOTAL 6.1 mg/dL (8.8-10.5); CREATININE 3.25 mg/dL (0.60-1.30); MAGNESIUM 1.9 mg/dL (1.80-2.40); PHOSPHORUS 5.2 mg/dL (2.5-4.9); POTASSIUM 3.2 mmol/L (3.5-5.1); TOTAL PROTEIN, SERUM 4.7 g/dL (6.4-8.2)
[2022-03-02 07:36] LABS: GLUCOSE,POINT OF CARE 139 MG/DL (70-110)
[2022-03-02 07:40] LABS: GLUCOSE,POINT OF CARE 189 MG/DL (70-110)
[2022-03-02] MEDS: PANTOPRAZOLE SODIUM 40 MG/VIAL IVP SCH ×2 (08:27→21:20)
[2022-03-02] MEDS: MetroNIDAZOLE 500 MG TABLET PO SCH ×3 (08:27→23:17)
[2022-03-02] MEDS: AMIODARONE HCL 200 MG TABLET NG SCH ×3 (08:27→21:21)
[2022-03-02] MEDS: CITRIC ACID/SODIUM CITRATE 30 ML SOLUTION UDCUP PO SCH ×2 (08:27→21:21)
[2022-03-02] MEDS: EPOETIN ALFA 10,000 UNITS/ML VIAL SQ SCH (08:28)
[2022-03-02 12:51] LABS: GLUCOSE,POINT OF CARE 173 MG/DL (70-110)
[2022-03-02] MEDS: SODIUM CHLORIDE 0.9% 1,000 ML IV SCH (14:04)
[2022-03-02 18:14] LABS: CREATININE 3.27 mg/dL (0.60-1.30)
[2022-03-02 18:36] LABS: GLUCOSE,POINT OF CARE 195 MG/DL (70-110)
[2022-03-02 18:46] LABS: CALCIUM, TOTAL 5.3 mg/dL (8.8-10.5); POTASSIUM 2.4 mmol/L (3.5-5.1)
[2022-03-02] MEDS ORDERED: POTASSIUM CHLORIDE 10% 40 MEQ/30 ML LIQUID UDCUP NG ONE ×2 (19:00→22:00)
[2022-03-03] VITALS (22 sets, daily range): BP systolic 90–186; BP diastolic 47–80
[2022-03-03] MEDS: INSULIN LISPRO 100 UNITS/ML SQ PRN ×2 (00:42→17:12)
[2022-03-03] MEDS: ALBUMIN HUMAN 25%-25GM/100ML 100 ML IV SCH ×3 (00:44→17:03)
[2022-03-03] MEDS: NAFCILLIN SODIUM 2 GM in DEXTROSE 5%-WATER 100 ML IV SCH ×6 (01:36→22:09)
[2022-03-03] MEDS: SODIUM CHLORIDE 0.9% 1,000 ML IV SCH ×2 (03:42→17:13)
[2022-03-03 05:32] LABS: GLUCOSE,POINT OF CARE 176 MG/DL (70-110)
[2022-03-03 05:38] LABS: BASOPHILS % (AUTO) 0.1 % (0.0-2.0); EOSINOPHILS % (AUTO) 0.2 % (1.0-6.0); HEMATOCRIT 23.4 % (36-46); HEMOGLOBIN 8.2 g/dL (12.0-16.0); LYMPHOCYTES # (AUTO) 0.4 K/uL (1.0-4.8); LYMPHOCYTES % (AUTO) 3.8 % (22.0-44.0); MEAN CORPUSCULAR HEMOGLOBIN 27.4 pg (26.0-34.0); MEAN CORPUSCULAR HGB CONC 34.8 G/dL (31.0-37.0); MEAN CORPUSCULAR VOLUME 79 fL (80-100); MONOCYTES # (AUTO) 0.6 K/uL (0.1-1.0); MONOCYTES % (AUTO) 5.5 % (2.0-9.0); NEUTROPHILS # (AUTO) 10.5 K/uL (1.8-7.7); PLATELET COUNT (AUTO) 141 K/uL (150-450); RED BLOOD CELL COUNT(AUTO) 2.97 MIL/uL (4.00-5.20); RED CELL DISTRIBUTION WIDTH 17.9 % (11.5-14.5)
[2022-03-03 05:52] LABS: NEUTROPHILS % (AUTO) 90.4 % (40.0-70.0)
[2022-03-03 05:58] LABS: ALBUMIN 3.2 g/dL (3.4-5.0); C-REACTIVE PROTEIN QUANT 5.1 mg/dL (0.00-0.30); CALCIUM, TOTAL 7.1 mg/dL (8.8-10.5); CREATININE 1.74 mg/dL (0.60-1.30); POTASSIUM 3.3 mmol/L (3.5-5.1); TOTAL PROTEIN, SERUM 5.1 g/dL (6.4-8.2)
[2022-03-03 06:21] LABS: GLUCOSE,POINT OF CARE 138 MG/DL (70-110)
[2022-03-03] MEDS: AMIODARONE HCL 200 MG TABLET NG SCH ×2 (08:43→20:49)
[2022-03-03] MEDS: MetroNIDAZOLE 500 MG TABLET PO SCH ×2 (08:43→15:18)
[2022-03-03] MEDS: CITRIC ACID/SODIUM CITRATE 30 ML SOLUTION UDCUP PO SCH (08:43)
[2022-03-03] MEDS: PANTOPRAZOLE SODIUM 40 MG/VIAL IVP SCH ×2 (09:36→20:49)
[2022-03-03] MEDS ORDERED: HEPARIN SODIUM,PORCINE 1,000 UNITS/ML VIAL IVP ONE ×2 (12:00→19:01)
[2022-03-03 13:01] LABS: GLUCOSE,POINT OF CARE 225 MG/DL (70-110)
[2022-03-03] MEDS: CALCITRIOL 1 MCG/ML AMP IVP SCH (14:06)
[2022-03-03] MEDS ORDERED: POTASSIUM CHLORIDE 10% 40 MEQ/30 ML LIQUID UDCUP NG ONE (14:15)
[2022-03-03] MEDS: LEVOFLOXACIN 500 MG/D5% WATER 100 ML IV SCH (15:17)
[2022-03-03 17:21] LABS: GLUCOSE,POINT OF CARE 243 MG/DL (70-110)
[2022-03-04] VITALS: BP 113/73
[2022-03-04] MEDS: MetroNIDAZOLE 500 MG TABLET PO SCH ×3 (00:10→15:55)
[2022-03-04] MEDS: INSULIN LISPRO 100 UNITS/ML SQ PRN ×3 (00:10→18:23)
[2022-03-04] MEDS: ALBUMIN HUMAN 25%-25GM/100ML 100 ML IV SCH ×3 (00:20→17:17)
[2022-03-04] MEDS: NAFCILLIN SODIUM 2 GM in DEXTROSE 5%-WATER 100 ML IV SCH ×6 (01:00→21:36)
[2022-03-04 04:00] VITALS: BP 93/50
[2022-03-04 06:02] LABS: ALBUMIN 3.2 g/dL (3.4-5.0); BILIRUBIN,TOTAL 1.9 mg/dL (0.1-1.0); C-REACTIVE PROTEIN QUANT 4.55 mg/dL (0.00-0.30); CALCIUM, TOTAL 7.9 mg/dL (8.8-10.5); CREATININE 1.36 mg/dL (0.60-1.30); MAGNESIUM 1.4 mg/dL (1.80-2.40); PHOSPHORUS 2.3 mg/dL (2.5-4.9); POTASSIUM 3.3 mmol/L (3.5-5.1); TOTAL PROTEIN, SERUM 4.8 g/dL (6.4-8.2)
[2022-03-04 08:00] VITALS: BP 98/56
[2022-03-04] MEDS: SODIUM CHLORIDE 0.9% 1,000 ML IV SCH (08:56)
[2022-03-04] MEDS: CALCITRIOL 1 MCG/ML AMP IVP SCH (08:57)
[2022-03-04] MEDS: PANTOPRAZOLE SODIUM 40 MG/VIAL IVP SCH ×2 (08:57→20:13)
[2022-03-04] MEDS: AMIODARONE HCL 200 MG TABLET NG SCH ×2 (08:57→20:13)
[2022-03-04] MEDS ORDERED: SODIUM CHLORIDE 0.9% 250 ML IV ONE ×2 (09:37→13:22)
[2022-03-04 12:00] VITALS: BP 140/71
[2022-03-04 12:06] LABS: GLUCOSE,POINT OF CARE 186 MG/DL (70-110)
[2022-03-04 12:06] LABS: GLUCOSE,POINT OF CARE 167 MG/DL (70-110)
[2022-03-04] MEDS: POTASSIUM CHL 10 MEQ/WATER 50 ML IV SCH ×3 (13:19→14:35)
[2022-03-04] MEDS: MAGNESIUM SULFATE 1 GM in DEXTROSE 5%-WATER 50 ML IV SCH (13:20)
[2022-03-04] MEDS: BUMETANIDE 0.25 MG/ML 4 ML VIAL IVP SCH (14:02)
[2022-03-04 15:23] LABS: ABG BASE EXCESS -3.9 mmol/L (-2.0-3.0); ABG CARBOXYHEMOGLOBIN 0.6 % (0.0-1.5); ABG HCO3 21.6 mmol/L (22.0-26.0); ABG METHEMOGLOBIN 0.3 % (0.0-1.5); ABG OXYGEN CONTENT 12.1 mL/dL (15.0-23.0); ABG OXYGEN SATURATION 95.9 % (95.0-98.0); ABG PCO2 34 mmHg (35-45); ABG PH 7.411 (7.35-7.450); PO2, ARTERIAL BG 71.3 mmHg (75.0-83.0); TEMPERATURE, FAHRENHEIT, BG 95.4 FAHREN (96.0-98.6)
[2022-03-04 15:24] LABS: O2 DEVICE,BLOOD GAS VENTILATOR (ROOM AIR); PEEP,BG 5 cm H2O; SITE, BLOOD GAS LFT RADIAL; SOURCE, BLOOD GAS ARTERIAL; SPONTANEOUS VT, BG 473 ml; VT, ABG 450 ml
[2022-03-04 16:00] VITALS: BP 100/52
[2022-03-04 18:31] LABS: GLUCOSE,POINT OF CARE 222 MG/DL (70-110)
[2022-03-04 19:45] LABS: GLUCOSE,POINT OF CARE 236 MG/DL (70-110)
[2022-03-04 20:00] VITALS: BP 123/76
[2022-03-05] VITALS: BP 138/72
[2022-03-05] MEDS: MetroNIDAZOLE 500 MG TABLET PO SCH ×3 (00:28→15:30)
[2022-03-05] MEDS: ALBUMIN HUMAN 25%-25GM/100ML 100 ML IV SCH ×3 (00:28→17:22)
[2022-03-05] MEDS: INSULIN LISPRO 100 UNITS/ML SQ PRN ×4 (00:37→17:52)
[2022-03-05] MEDS: NAFCILLIN SODIUM 2 GM in DEXTROSE 5%-WATER 100 ML IV SCH ×6 (02:06→21:30)
[2022-03-05 04:00] VITALS: BP 109/56
[2022-03-05 05:11] LABS: GLUCOSE,POINT OF CARE 199 MG/DL (70-110)
[2022-03-05 06:02] LABS: GLUCOSE,POINT OF CARE 191 MG/DL (70-110)
[2022-03-05 06:12] LABS: BASOPHILS % (AUTO) 0.1 % (0.0-2.0); EOSINOPHILS % (AUTO) 0.8 % (1.0-6.0); HEMATOCRIT 23.2 % (36-46); HEMOGLOBIN 7.7 g/dL (12.0-16.0); LYMPHOCYTES # (AUTO) 0.5 K/uL (1.0-4.8); LYMPHOCYTES % (AUTO) 5.7 % (22.0-44.0); MEAN CORPUSCULAR HEMOGLOBIN 27.9 pg (26.0-34.0); MEAN CORPUSCULAR HGB CONC 33.4 G/dL (31.0-37.0); MEAN CORPUSCULAR VOLUME 83 fL (80-100); MONOCYTES # (AUTO) 0.7 K/uL (0.1-1.0); MONOCYTES % (AUTO) 9.4 % (2.0-9.0); NEUTROPHILS # (AUTO) 6.7 K/uL (1.8-7.7); PLATELET COUNT (AUTO) 176 K/uL (150-450); RED BLOOD CELL COUNT(AUTO) 2.78 MIL/uL (4.00-5.20); RED CELL DISTRIBUTION WIDTH 19.1 % (11.5-14.5)
[2022-03-05 06:46] LABS: ALBUMIN 3.1 g/dL (3.4-5.0); BILIRUBIN,TOTAL 2.3 mg/dL (0.1-1.0); C-REACTIVE PROTEIN QUANT 3.6 mg/dL (0.00-0.30); CALCIUM, TOTAL 8.5 mg/dL (8.8-10.5); CREATININE 1.88 mg/dL (0.60-1.30); MAGNESIUM 1.7 mg/dL (1.80-2.40); THYROID STIMULATING HORMONE 1.71 uIU/mL (0.36-3.74); TOTAL PROTEIN, SERUM 4.7 g/dL (6.4-8.2)
[2022-03-05 08:00] VITALS: BP 139/72
[2022-03-05] MEDS ORDERED: POTASSIUM CHLORIDE 10% 40 MEQ/30 ML LIQUID UDCUP NG ONE (08:00)
[2022-03-05] MEDS: MAGNESIUM SULFATE 1 GM in DEXTROSE 5%-WATER 50 ML IV SCH (08:25)
[2022-03-05] MEDS: CALCITRIOL 1 MCG/ML AMP IVP SCH (08:26)
[2022-03-05] MEDS: AMIODARONE HCL 200 MG TABLET NG SCH ×2 (08:26→20:46)
[2022-03-05] MEDS: PANTOPRAZOLE SODIUM 40 MG/VIAL IVP SCH ×2 (08:26→20:46)
[2022-03-05] MEDS: BUMETANIDE 0.25 MG/ML 4 ML VIAL IVP SCH (08:27)
[2022-03-05] MEDS: EPOETIN ALFA 10,000 UNITS/ML VIAL SQ SCH (08:27)
[2022-03-05] MEDS: POTASSIUM CHL 10 MEQ/WATER 50 ML IV SCH ×3 (09:46→11:39)
[2022-03-05 12:00] VITALS: BP 138/74
[2022-03-05 14:01] LABS: GLUCOSE,POINT OF CARE 193 MG/DL (70-110)
[2022-03-05] MEDS: LEVOFLOXACIN 500 MG/D5% WATER 100 ML IV SCH (15:30)
[2022-03-05 16:00] VITALS: BP 125/66
[2022-03-05 19:16] LABS: GLUCOSE,POINT OF CARE 200 MG/DL (70-110)
[2022-03-05 20:00] VITALS: BP 123/65
[2022-03-06] VITALS: BP 110/60
[2022-03-06] MEDS: MetroNIDAZOLE 500 MG TABLET PO SCH ×4 (00:01→23:58)
[2022-03-06 00:41] LABS: GLUCOSE,POINT OF CARE 189 MG/DL (70-110)
[2022-03-06] MEDS: ALBUMIN HUMAN 25%-25GM/100ML 100 ML IV SCH ×3 (01:19→18:56)
[2022-03-06] MEDS ORDERED: SODIUM CHLORIDE 0.9% 250 ML IV ONE (02:04)
[2022-03-06] MEDS: NAFCILLIN SODIUM 2 GM in DEXTROSE 5%-WATER 100 ML IV SCH ×6 (02:08→22:29)
[2022-03-06 03:36] LABS: HEMATOCRIT 23.8 % (36-46); HEMOGLOBIN 7.8 g/dL (12.0-16.0); MEAN CORPUSCULAR HEMOGLOBIN 26.9 pg (26.0-34.0); MEAN CORPUSCULAR HGB CONC 32.6 G/dL (31.0-37.0); MEAN CORPUSCULAR VOLUME 83 fL (80-100); PLATELET COUNT (AUTO) 237 K/uL (150-450); RED BLOOD CELL COUNT(AUTO) 2.88 MIL/uL (4.00-5.20); RED CELL DISTRIBUTION WIDTH 21.6 % (11.5-14.5)
[2022-03-06 03:46] LABS: CALCIUM, TOTAL 8.7 mg/dL (8.8-10.5); CREATININE 2.49 mg/dL (0.60-1.30); POTASSIUM 4.1 mmol/L (3.5-5.1)
[2022-03-06 04:00] VITALS: BP 93/59
[2022-03-06 04:02] LABS: BAND NEUTROPHILS % (MANUAL) 3 % (0-5); EOSINOPHILS % (MANUAL) 1 % (1-6); LYMPHOCYTES % (MANUAL) 26 % (22-44); METAMYELOCYTES % 3 % (0-0); MONOCYTES % (MANUAL) 1 % (2-9); SEGMENTED NEUTROPHILS % 66 % (40-70)
[2022-03-06 04:41] LABS: GLUCOSE,POINT OF CARE 192 MG/DL (70-110)
[2022-03-06 06:37] LABS: GLUCOSE,POINT OF CARE 206 MG/DL (70-110)
[2022-03-06] MEDS: CALCITRIOL 1 MCG/ML AMP IVP SCH (07:23)
[2022-03-06] MEDS: BUMETANIDE 0.25 MG/ML 4 ML VIAL IVP SCH (07:23)
[2022-03-06] MEDS: AMIODARONE HCL 200 MG TABLET NG SCH ×2 (07:24→20:49)
[2022-03-06] MEDS: PANTOPRAZOLE SODIUM 40 MG/VIAL IVP SCH ×2 (07:24→20:49)
[2022-03-06 08:00] VITALS: BP 116/52
[2022-03-06] MEDS: MAGNESIUM SULFATE 1 GM in DEXTROSE 5%-WATER 50 ML IV SCH (09:27)
[2022-03-06] MEDS: INSULIN LISPRO 100 UNITS/ML SQ PRN (11:50)
[2022-03-06 12:00] VITALS: BP 155/58
[2022-03-06 12:01] LABS: GLUCOSE,POINT OF CARE 193 MG/DL (70-110)
[2022-03-06 12:07] LABS: ALPHA-1 (IFE & PEP) 0.2 g/dL (0.0-0.4); BETA (IFE & ELP) 0.3 g/dL (0.7-1.3); GAMMA GLOBULINS (IFE & ELP) 0.2 g/dL (0.4-1.8); IGM (IMMUNOFIXATION) 32 mg/dL (26-217)
[2022-03-06 14:06] LABS: FREE KAPPA LIGHT CHAINS,S 103.3 mg/L (3.3-19.4); FREE KAPPA/LAMBDA LT CHN RATIO 2.16 (0.26-1.65)
[2022-03-06 16:00] VITALS: BP 136/50
[2022-03-06 16:37] LABS: CALCIUM, TOTAL 8.7 mg/dL (8.8-10.5); CREATININE 2.5 mg/dL (0.60-1.30); POTASSIUM 3.3 mmol/L (3.5-5.1)
[2022-03-06] MEDS ORDERED: EPINEPHrine 1:10,000 [1 MG/10 ML] SYRINGE IVP ONE (18:02)
[2022-03-06 19:06] LABS: GLUCOSE,POINT OF CARE 180 MG/DL (70-110)
[2022-03-06 20:00] VITALS: BP 164/49
[2022-03-07] VITALS (15 sets, daily range): BP systolic 65–144; BP diastolic 41–82
[2022-03-07] MEDS: ALBUMIN HUMAN 25%-25GM/100ML 100 ML IV SCH ×3 (01:30→17:20)
[2022-03-07] MEDS: NAFCILLIN SODIUM 2 GM in DEXTROSE 5%-WATER 100 ML IV SCH ×5 (02:00→18:45)
[2022-03-07] MEDS ORDERED: SODIUM CHLORIDE 0.9% 250 ML IV ONE (05:26)
[2022-03-07 05:42] LABS: CALCIUM, TOTAL 8.9 mg/dL (8.8-10.5); CREATININE 2.81 mg/dL (0.60-1.30); MAGNESIUM 1.9 mg/dL (1.80-2.40); PHOSPHORUS 4.2 mg/dL (2.5-4.9); POTASSIUM 3.2 mmol/L (3.5-5.1)
[2022-03-07] MEDS: INSULIN LISPRO 100 UNITS/ML SQ PRN ×2 (06:23→16:26)
[2022-03-07] MEDS: NOREPINEPHRINE 8 MG/D5%-WATER 250 ML IV PRN ×2 (07:50→18:45)
[2022-03-07] MEDS: MetroNIDAZOLE 500 MG TABLET PO SCH ×2 (08:16→17:20)
[2022-03-07] MEDS: BUMETANIDE 0.25 MG/ML 4 ML VIAL IVP SCH (08:16)
[2022-03-07] MEDS: CALCITRIOL 1 MCG/ML AMP IVP SCH (08:16)
[2022-03-07] MEDS: PANTOPRAZOLE SODIUM 40 MG/VIAL IVP SCH (08:17)
[2022-03-07] MEDS: AMIODARONE HCL 200 MG TABLET NG SCH (08:17)
[2022-03-07] MEDS: EPOETIN ALFA 10,000 UNITS/ML VIAL SQ SCH (08:17)
[2022-03-07 10:51] LABS: GLUCOSE,POINT OF CARE 158 MG/DL (70-110)
[2022-03-07 10:51] LABS: GLUCOSE,POINT OF CARE 192 MG/DL (70-110)
[2022-03-07] MEDS ORDERED: HEPARIN SODIUM,PORCINE 1,000 UNITS/ML VIAL IVCATH ONE ×2 (13:15)
[2022-03-07] MEDS: PHENYLEPHRINE 200 MG/D5%-WATER 250 ML IV PRN (15:48)
[2022-03-07 16:21] LABS: GLUCOSE,POINT OF CARE 130 MG/DL (70-110)
[2022-03-07] MEDS ORDERED: HEPARIN SODIUM,PORCINE 1,000 UNITS/ML VIAL IVP ONE (16:27)
[2022-03-07] MEDS ORDERED: DOPamine 400MG/D5W[STANDARD] 250 ML IV PRN (17:15)
[2022-03-07] MEDS: LEVOFLOXACIN 500 MG/D5% WATER 100 ML IV SCH (17:20)
[2022-03-07 17:46] LABS: GLUCOSE,POINT OF CARE 194 MG/DL (70-110)
[2022-03-07] MEDS ORDERED: SODIUM CHLORIDE 0.9% 500 ML IV ONE (18:17)
== END 2022-03-08 01:17 | DRG 870 ==
LOC: EMS 13:35 → ICUN 02-19 09:29 → UNDOADMIN 02-19 09:29 → ICU 02-19 11:45
PROVIDERS: ADMIT Internal Medicine; ATTEND Internal Medicine
PROC: 5A1955Z Respiratory Ventilation, Greater than 96 Consecutive Hours (ICD-10-PCS; principal; 2022-02-19)
PROC: 0BH17EZ Insertion of Endotracheal Airway into Trachea, Via Natural or Artificial Opening (ICD-10-PCS; 2022-02-19)
PROC: 04HK33Z Insertion of Infusion Device into Right Femoral Artery, Percutaneous Approach (ICD-10-PCS; 2022-02-19)
PROC: B44FZZZ Ultrasonography of Right Lower Extremity Arteries (ICD-10-PCS; 2022-02-19)
PROC: 05HM33Z Insertion of Infusion Device into Right Internal Jugular Vein, Percutaneous Approach (ICD-10-PCS; 2022-02-19)
PROC: B543ZZA Ultrasonography of Right Jugular Veins, Guidance (ICD-10-PCS; 2022-02-19)
PROC: 05HN33Z Insertion of Infusion Device into Left Internal Jugular Vein, Percutaneous Approach (ICD-10-PCS; 2022-02-19)
PROC: B544ZZA Ultrasonography of Left Jugular Veins, Guidance (ICD-10-PCS; 2022-02-19)
PROC: 5A1D70Z Performance of Urinary Filtration, Intermittent, Less than 6 Hours Per Day (ICD-10-PCS; 2022-02-20)
PROC: 5A1D70Z Performance of Urinary Filtration, Intermittent, Less than 6 Hours Per Day (ICD-10-PCS; 2022-02-20)
PROC: B246ZZ4 Ultrasonography of Right and Left Heart, Transesophageal (ICD-10-PCS; 2022-02-23)
PROC: 30233N1 Transfusion of Nonautologous Red Blood Cells into Peripheral Vein, Percutaneous Approach (ICD-10-PCS; 2022-02-27)
PROC: 30233N1 Transfusion of Nonautologous Red Blood Cells into Peripheral Vein, Percutaneous Approach (ICD-10-PCS; 2022-02-27)
PROC: 06H03DZ Insertion of Intraluminal Device into Inferior Vena Cava, Percutaneous Approach (ICD-10-PCS; 2022-03-01)
PROC: B519ZZZ Fluoroscopy of Inferior Vena Cava (ICD-10-PCS; 2022-03-01)
PROC: 30233N1 Transfusion of Nonautologous Red Blood Cells into Peripheral Vein, Percutaneous Approach (ICD-10-PCS; 2022-03-02)
PROC: 5A1D70Z Performance of Urinary Filtration, Intermittent, Less than 6 Hours Per Day (ICD-10-PCS; 2022-03-03)
PROC: 5A1D70Z Performance of Urinary Filtration, Intermittent, Less than 6 Hours Per Day (ICD-10-PCS; 2022-03-03)
PROC: 4A00X4Z Measurement of Central Nervous Electrical Activity, External Approach (ICD-10-PCS; 2022-03-05)
PROC: 5A12012 Performance of Cardiac Output, Single, Manual (ICD-10-PCS; 2022-03-07)
PROC: 5A1D70Z Performance of Urinary Filtration, Intermittent, Less than 6 Hours Per Day (ICD-10-PCS; 2022-03-07)
DX: A41.01 Sepsis due to Methicillin susceptible Staphylococcus aureus (principal); J96.01 Acute respiratory failure with hypoxia; R65.21 Severe sepsis with septic shock; N17.0 Acute kidney failure with tubular necrosis; G92.8 Other toxic encephalopathy; J69.0 Pneumonitis due to inhalation of food and vomit; I82.412 Acute embolism and thrombosis of left femoral vein; Z99.11 Dependence on respirator [ventilator] status; E87.0 Hyperosmolality and hypernatremia; J90 Pleural effusion, not elsewhere classified; I42.9 Cardiomyopathy, unspecified; E87.1 Hypo-osmolality and hyponatremia; N18.9 Chronic kidney disease, unspecified; F03.A0 Unspecified dementia, mild, without behavioral disturbance, psychotic disturbance, mood disturbance, and anxiety; I46.9 Cardiac arrest, cause unspecified; E87.5 Hyperkalemia; E11.22 Type 2 diabetes mellitus with diabetic chronic kidney disease; E66.01 Morbid (severe) obesity due to excess calories; E11.65 Type 2 diabetes mellitus with hyperglycemia; I25.10 Atherosclerotic heart disease of native coronary artery without angina pectoris; D64.9 Anemia, unspecified; K82.8 Other specified diseases of gallbladder; E83.52 Hypercalcemia; E87.6 Hypokalemia; E83.51 Hypocalcemia; N28.1 Cyst of kidney, acquired; Z20.822 Contact with and (suspected) exposure to COVID-19; I48.0 Paroxysmal atrial fibrillation; I12.9 Hypertensive chronic kidney disease with stage 1 through stage 4 chronic kidney disease, or unspecified chronic kidney disease; Z74.01 Bed confinement status; Z99.3 Dependence on wheelchair; Z83.3 Family history of diabetes mellitus; I25.2 Old myocardial infarction; Z95.828 Presence of other vascular implants and grafts; Z87.01 Personal history of pneumonia (recurrent); Z79.899 Other long term (current) drug therapy; Z79.84 Long term (current) use of oral hypoglycemic drugs; Z79.82 Long term (current) use of aspirin; Z79.4 Long term (current) use of insulin; Z51.5 Encounter for palliative care
CPT/HCPCS: 31500; 36245; 36556; 36569; 36600; 37619; 51702; 70450; 70551; 71045; 71250; 72141; 72146; 72148; 72192; 74150; 76000; 76705; 76937; 78226; 80048; 80053; 80061; 80202; 81001; 81003; 82140; 82271; 82550; 82570; 82607; 82784; 82805; 82962; 83605; 83690; 83735; 83880; 83883; 83970; 84100; 84132; 84155; 84165; 84300; 84443; 84484; 84540; 85007; 85014; 85018; 85025; 85027; 85610; 85730; 86140; 86334; 86709; 86850; 86900; 86901; 86923; 87040; 87070; 87077; 87081; 87186; 87205; 87324; 87340; 87449; 87899; 90935; 92950; 93005; 93306; 93312; 93970; 94002; 94003; 95816; 99291; 99292; A9537; C9113; G0238; G0378; J0131; J0171; J0282; J0610; J0636; J0692; J0696; J0885; J1160; J1644; J1815; J1956; J2370; J2704; J3010; J3370; J3475; J3480; J3490; J7030; J7040; J7050; J7060; P9016; P9046; Q9967; 36415-L1; 36415-TC; X7700